=== PATIENT | female | born 1935 | race Hispanic/Latino ===

== ENCOUNTER 2017-07-09 22:50 | Emergency (ER) | payer OTHER, MEDICARE ==
[~2017-07-09 22:50] MED LIST: ACET1TAB25 PO; ASPI-1197 PO; GABA-529 PO; METOPROLOL PO; NITR0.4T SL; PANT40TA25 PO; PRAV40TA3 PO; TRAM50TA4 PO; VITA150T PO
[2017-07-09 23:29] LABS: APPEARANCE,URINE Clear (CLEAR); BILIRUBIN,URINE Negative (NEGATIVE); COLOR,URINE Yellow (YELLOW); GLUCOSE, URINE (UA) Negative (NEGATIVE); KETONES,URINE Negative (NEGATIVE); LEUKOCYTE ESTERASE ,URINE Negative (NEGATIVE); NITRATE,URINE Negative (NEGATIVE); OCCULT BLOOD,URINE Negative (NEGATIVE); PH,URINE 5.5 (5.0-8.0); PROTEIN,URINE POS 2+ (NEGATIVE); UROBILINOGEN,URINE 0.2 mg/dL (0.2-1.0)
[2017-07-09 23:36] LABS: CREATININE 0.8 mg/dL (0.5-1.5)
[2017-07-09 23:41] LABS: ALBUMIN 3.4 g/dL (3.5-5.0); BILIRUBIN,TOTAL 0.3 mg/dL (0.2-1.0); TOTAL PROTEIN, SERUM 7.8 g/dL (6.0-8.3)
[2017-07-09 23:43] LABS: BASOPHILS % (AUTO) 0.4 % (0.0-5.0); EOSINOPHILS % (AUTO) 0.7 % (0.0-8.0); HEMATOCRIT 37.8 % (36-48); MEAN CORPUSCULAR HEMOGLOBIN 32.5 pg (27.0-33.0); MEAN CORPUSCULAR HGB CONC 34.7 g/dL (32.0-36.0); MEAN CORPUSCULAR VOLUME 93.5 fL (79-99); MONOCYTES % (AUTO) 6.7 % (3.0-13.0); NEUTROPHILS % (AUTO) 60.2 % (40.0-77.0); PLATELET COUNT (AUTO) 206 K/uL (130-400); RED BLOOD CELL COUNT(AUTO) 4.04 MIL/uL (4.00-5.50); RED CELL DISTRIBUTION WIDTH 12.6 % (11.0-15.5); WHITE BLOOD COUNT (AUTO) 8.1 K/uL (4.8-10.8)
[2017-07-10 00:01] LABS: BACTERIA,URINE None Seen /HPF (None Seen); RBC,URINE None Seen /HPF (0-1); SQUAMOUS EPITHELIAL CELL,UR Few /LPF (0-2); WBC,URINE None Seen /HPF (0-1)
[2017-07-10] MEDS ORDERED: SODIUM CHLORIDE 0.9% 500ML 500 ML IV ONE (00:27)
[2017-07-10] MEDS ORDERED: ONDANSETRON HCL MDV 20ML 2 MG/ML VIAL ONE (00:27)
[2017-07-10] MEDS ORDERED: MORPHINE SULFATE 2 MG/ML 1ML SYG ONE (00:27)
[2017-07-10] MEDS ORDERED: MECLIZINE HCL 25 MG TABLET ONE (00:27)
== END 2017-07-10 03:52 | disposition home or self-care (01) ==
LOC: EDH 22:50
DX: M54.12 Radiculopathy, cervical region (principal); H81.10 Benign paroxysmal vertigo, unspecified ear; M46.82 Other specified inflammatory spondylopathies, cervical region
CPT/HCPCS: 36415; 70544; 70547; 70551; 80053; 81001; 85025; 93005; 96374; 96375; 99285; J7040

== ENCOUNTER 2017-10-28 17:50 | Observation (INO) | payer OTHER, MEDICARE ==
[~2017-10-28] VITALS: Ht 152.4 cm; Wt 60.5 kg
[2017-10-28] MEDS ORDERED: ASPIRIN 325 MG TABLET ONE (18:04)
[2017-10-28 18:13] LABS: BASOPHILS % (AUTO) 0.3 % (0.0-5.0); EOSINOPHILS % (AUTO) 0.5 % (0.0-8.0); HEMATOCRIT 39.5 % (36-48); LYMPHOCYTES % (AUTO) 34.3 % (21.0-51.0); MEAN CORPUSCULAR HEMOGLOBIN 32.1 pg (27.0-33.0); MEAN CORPUSCULAR HGB CONC 33.8 g/dL (32.0-36.0); MEAN CORPUSCULAR VOLUME 94.7 fL (79-99); MONOCYTES % (AUTO) 6.2 % (3.0-13.0); NEUTROPHILS % (AUTO) 58.7 % (40.0-77.0); PLATELET COUNT (AUTO) 199 K/uL (130-400); RED BLOOD CELL COUNT(AUTO) 4.17 MIL/uL (4.00-5.50); RED CELL DISTRIBUTION WIDTH 13.5 % (11.0-15.5); WHITE BLOOD COUNT (AUTO) 8.2 K/uL (4.8-10.8)
[2017-10-28 18:19] LABS: APPEARANCE,URINE Clear (CLEAR); BILIRUBIN,URINE Negative (NEGATIVE); COLOR,URINE Dark Yellow (YELLOW); GLUCOSE, URINE (UA) Negative (NEGATIVE); KETONES,URINE Negative (NEGATIVE); LEUKOCYTE ESTERASE ,URINE Negative (NEGATIVE); NITRATE,URINE Negative (NEGATIVE); OCCULT BLOOD,URINE Negative (NEGATIVE); PROTEIN,URINE POS 2+ (NEGATIVE); UROBILINOGEN,URINE 0.2 mg/dL (0.2-1.0)
[2017-10-28 18:25] LABS: CREATININE 0.8 mg/dL (0.5-1.5)
[2017-10-28 18:28] LABS: INR 0.9 (0.85-1.15); PARTIAL THROMBOPLASTIN TIME 25.9 SEC (26.3-35.5); PROTHROMBIN TIME 9.5 SEC (9.6-11.6)
[2017-10-28 18:31] LABS: RBC,URINE None Seen /HPF (0-1); WBC,URINE 0-1 /HPF (0-1)
[2017-10-28 18:32] LABS: BACTERIA,URINE Rare /HPF (None Seen)
[2017-10-28 18:38] LABS: ALBUMIN 3.5 g/dL (3.5-5.0); BILIRUBIN,TOTAL 0.2 mg/dL (0.2-1.0); CREATINE KINASE MB 1.4 ng/mL (0.5-3.6); TOTAL PROTEIN, SERUM 7.5 g/dL (6.0-8.3)
[2017-10-28 18:42] LABS: B-TYPE NATRIURETIC PEPTIDE 49 pg/mL (0-100)
[2017-10-28] MEDS ORDERED: FUROSEMIDE 10 MG/ML 2ML VIAL ONE (18:42)
[2017-10-28] MEDS ORDERED: NITROGLYCERIN 1GM/1 INCH PACKET TD ONE (18:42)
[2017-10-28] MEDS ORDERED: HYDRALAZINE HCL 20 MG/ML VIAL IV PRN (20:00)
[2017-10-28] MEDS ORDERED: ONDANSETRON HCL 4 MG/2 ML VIAL IVP PRN (20:15)
[2017-10-28] MEDS ORDERED: HYDROCODONE/ACETAMINOPHEN 5/325 MG TAB PO PRN (20:15)
[2017-10-28] MEDS ORDERED: ACETAMINOPHEN 325 MG TAB PO PRN (20:15)
[2017-10-28] MEDS ORDERED: MORPHINE SULFATE 2 MG/ML 1ML SYG IVP PRN (20:15)
[2017-10-28] MEDS ORDERED: LABETALOL HCL 5 MG/ML 20ML VIAL IV PRN (20:15)
[2017-10-28 21:00] VITALS: BP 148/72
[2017-10-28] MEDS: METOPROLOL TARTRATE 50 MG TAB PO SCH (21:10)
[2017-10-29] VITALS: BP 140/84
[2017-10-29 01:04] LABS: CREATINE KINASE MB 1.1 ng/mL (0.5-3.6); CREATINE KINASE, TOTAL 54 U/L (21-232); MYOGLOBIN 68 ng/mL (10-92); TROPONIN I < 0.04 ng/mL (0.00-0.06)
[2017-10-29 04:00] VITALS: BP 126/72
[2017-10-29 05:54] LABS: HEMATOCRIT 36.9 % (36-48); MEAN CORPUSCULAR HEMOGLOBIN 32.2 pg (27.0-33.0); MEAN CORPUSCULAR HGB CONC 34.1 g/dL (32.0-36.0); MEAN CORPUSCULAR VOLUME 94.3 fL (79-99); PLATELET COUNT (AUTO) 183 K/uL (130-400); RED BLOOD CELL COUNT(AUTO) 3.91 MIL/uL (4.00-5.50); RED CELL DISTRIBUTION WIDTH 13.7 % (11.0-15.5)
[2017-10-29 06:01] LABS: POTASSIUM 3.8 mmol/L (3.5-5.1)
[2017-10-29 06:12] LABS: CREATINE KINASE MB 0.9 ng/mL (0.5-3.6); CREATINE KINASE, TOTAL 44 U/L (21-232); MYOGLOBIN 61 ng/mL (10-92); TROPONIN I < 0.04 ng/mL (0.00-0.06)
[2017-10-29 06:53] LABS: B-TYPE NATRIURETIC PEPTIDE 15 pg/mL (0-100)
[2017-10-29 08:00] VITALS: BP 130/60
[2017-10-29] MEDS: ATORVASTATIN CALCIUM 40 MG TABLET PO SCH (10:07)
[2017-10-29] MEDS: LISINOPRIL 10 MG TABLET PO SCH (10:08)
[2017-10-29] MEDS: ASPIRIN 81MG TAB.CHEW PO SCH (10:08)
[2017-10-29] MEDS: ENOXAPARIN SODIUM 40 MG/0.4 ML SYRINGE SQ SCH (10:10)
[2017-10-29] MEDS: METOPROLOL TARTRATE 50 MG TAB PO SCH ×2 (10:10→20:37)
[2017-10-29 11:00] VITALS: BP 139/69
[2017-10-29 16:00] VITALS: BP 100/66
[2017-10-29 20:00] VITALS: BP 112/60
[2017-10-30] VITALS: BP 114/60
[2017-10-30 04:00] VITALS: BP 108/64
[2017-10-30 08:00] VITALS: BP 131/64
[2017-10-30] MEDS: METOPROLOL TARTRATE 50 MG TAB PO SCH ×2 (09:00→20:04)
[2017-10-30] MEDS: ATORVASTATIN CALCIUM 40 MG TABLET PO SCH (09:00)
[2017-10-30] MEDS: LISINOPRIL 10 MG TABLET PO SCH (09:00)
[2017-10-30] MEDS: ASPIRIN 81MG TAB.CHEW PO SCH (09:00)
[2017-10-30] MEDS ORDERED: REGADENOSON 0.4 MG/5 ML PF SYG IVP SCH (11:30)
[2017-10-30] MEDS: ENOXAPARIN SODIUM 40 MG/0.4 ML SYRINGE SQ SCH (18:14)
[2017-10-30 19:03] VITALS: BP 121/64
[2017-10-30 23:31] VITALS: BP 128/73
[2017-10-31 03:21] VITALS: BP 114/66
[2017-10-31 07:00] VITALS: BP 112/71
[2017-10-31] MEDS: ATORVASTATIN CALCIUM 40 MG TABLET PO SCH (09:01)
[2017-10-31] MEDS: ASPIRIN 81MG TAB.CHEW PO SCH (09:01)
[2017-10-31] MEDS: METOPROLOL TARTRATE 50 MG TAB PO SCH (09:01)
[2017-10-31] MEDS: ENOXAPARIN SODIUM 40 MG/0.4 ML SYRINGE SQ SCH (09:02)
[2017-10-31] MEDS: LISINOPRIL 10 MG TABLET PO SCH (09:02)
== END 2017-10-31 10:40 | disposition home or self-care (01) ==
LOC: EDH 17:50 → EDHIP 18:50 → 3BH 20:38
PROVIDERS: ADMIT Internal Medicine Critical Care Medicine; ATTEND Internal Medicine Critical Care Medicine
DX: I16.1 Hypertensive emergency (principal); I10 Essential (primary) hypertension; E78.5 Hyperlipidemia, unspecified; Z82.49 Family history of ischemic heart disease and other diseases of the circulatory system; M19.90 Unspecified osteoarthritis, unspecified site
CPT/HCPCS: 36415 ×2; 71045; 78452; 80048; 80053; 81001; 82550 ×2; 82553 ×3; 83874 ×2; 83880 ×2; 84484 ×3; 85025; 85027; 85610; 85730; 93005 ×2; 93017; 93306; 96372 ×3; 96374; 99285; A9500 ×2; G0378 ×64; J1650 ×4; J1940; J2785

== ENCOUNTER → 2020-04-02 | Outpatient (CLI) | payer OTHER, MEDICARE ==
[~2020-04-02] MED LIST changes: -ACET1TAB25 PO; -GABA-529 PO; -PANT40TA25 PO; -TRAM50TA4 PO; -VITA150T PO
== END | disposition home or self-care (01) ==
LOC: SHCH 14:38
PROVIDERS: ATTEND Internal Medicine Cardiovascular Disease
DX: I87.2 Venous insufficiency (chronic) (peripheral) (principal)
CPT/HCPCS: 93970

== ENCOUNTER → 2020-04-23 | Outpatient (CLI) | payer OTHER, MEDICARE | END | disposition home or self-care (01) | LOC: SHCH 08:45 | PROVIDERS: ATTEND Internal Medicine Cardiovascular Disease | DX: Z09 Encounter for follow-up examination after completed treatment for conditions other than malignant neoplasm (principal); I87.2 Venous insufficiency (chronic) (peripheral) | CPT/HCPCS: 93971 ==

== ENCOUNTER → 2020-06-12 | Outpatient (CLI) | payer OTHER, MEDICARE | END | disposition home or self-care (01) | LOC: SHCH 10:48 | PROVIDERS: ATTEND Internal Medicine Cardiovascular Disease | DX: I82.811 Embolism and thrombosis of superficial veins of right lower extremity (principal); I87.2 Venous insufficiency (chronic) (peripheral) | CPT/HCPCS: 93970 ==

== ENCOUNTER → 2021-05-08 | Outpatient (CLI) | payer OTHER, MEDICARE | END | disposition home or self-care (01) | LOC: SHCH 14:39 | PROVIDERS: ATTEND Internal Medicine Cardiovascular Disease | DX: I87.2 Venous insufficiency (chronic) (peripheral) (principal) | CPT/HCPCS: 93970 ==

== ENCOUNTER → 2021-09-06 | Outpatient (CLI) | payer OTHER, MEDICARE | END | disposition home or self-care (01) | LOC: RAH 11:00 | PROVIDERS: ATTEND Internal Medicine Cardiovascular Disease | DX: I87.1 Compression of vein (principal); M79.81 Nontraumatic hematoma of soft tissue; Z95.828 Presence of other vascular implants and grafts | CPT/HCPCS: 76882 ==

== ENCOUNTER 2022-12-20 20:26 | Emergency (ER) | payer OTHER, MEDICARE ==
[~2022-12-20] VITALS: Ht 152.4 cm; Wt 55.8 kg
[2022-12-20 21:42] LABS: HEMATOCRIT 31.3 % (36-48); MEAN CORPUSCULAR HEMOGLOBIN 31.6 pg (27.0-33.0); MEAN CORPUSCULAR HGB CONC 33.2 g/dL (32.0-36.0); MEAN CORPUSCULAR VOLUME 95.1 fL (79-99); PLATELET COUNT (AUTO) 173 K/uL (130-400); RED BLOOD CELL COUNT(AUTO) 3.29 MIL/uL (4.00-5.50); RED CELL DISTRIBUTION WIDTH 13.1 % (11.0-15.5); WHITE BLOOD COUNT (AUTO) 7.7 K/uL (4.8-10.8)
[2022-12-20 21:52] LABS: CREATININE 1.1 mg/dL (0.5-1.5); POTASSIUM 3.8 mmol/L (3.5-5.1)
[2022-12-20] MEDS ORDERED: IBUP-2076 PO (21:52)
[2022-12-20] MEDS ORDERED: BACI30OI6 TP (21:52)
[2022-12-20 21:56] LABS: ALBUMIN 3.3 g/dL (3.5-5.0); BILIRUBIN,TOTAL 0.2 mg/dL (0.2-1.0); TOTAL PROTEIN, SERUM 6.9 g/dL (6.0-8.3)
[2022-12-20 22:09] VITALS: BP 154/62; PULSE 78; RESP 18; O2SAT 99
[2022-12-20 22:24] LABS: LYMPHOCYTES % (AUTO) 24.9 % (21.0-51.0)
[2022-12-20 22:25] LABS: BASOPHILS % (AUTO) 0.1 % (0.0-5.0); EOSINOPHILS % (AUTO) 0.7 % (0.0-8.0); IMMATURE GRANULOCYTE ABSOLUTE 0.02 K/uL (0-1)
== END 2022-12-20 22:23 | disposition home or self-care (01) ==
LOC: EDH 20:26
DX: S61.412A Laceration without foreign body of left hand, initial encounter (principal); S00.83XA Contusion of other part of head, initial encounter; E78.00 Pure hypercholesterolemia, unspecified; I10 Essential (primary) hypertension; Z79.82 Long term (current) use of aspirin; W01.10XA Fall on same level from slipping, tripping and stumbling with subsequent striking against unspecified object, initial encounter; Y93.89 Activity, other specified; Y92.89 Other specified places as the place of occurrence of the external cause; Y99.8 Other external cause status
CPT/HCPCS: 36415; 70450; 72125; 73130; 80053; 85025

== ENCOUNTER → 2023-06-16 | Outpatient (CLI) | payer OTHER, MEDICARE ==
[~2023-06-16] MED LIST changes: +BACI30OI6 TP; +IBUP-2076 PO
[2023-06-16] MEDS: REGADENOSON 0.4 MG/5 ML PF SYG IVP ONE (11:58)
== END | disposition home or self-care (01) ==
LOC: SHCH 07:52
PROVIDERS: ATTEND Internal Medicine Cardiovascular Disease
DX: I25.119 Atherosclerotic heart disease of native coronary artery with unspecified angina pectoris (principal); R07.9 Chest pain, unspecified
CPT/HCPCS: 78452; 93017; J2785; A9500 ×2; 96374

== ENCOUNTER 2025-04-21 08:37 | Observation (INO) | payer OTHER, MEDICAID ==
[2025-04-19 13:29] VITALS: BP 150/71; PULSE 80; RESP 18; TEMP 98.1
[2025-04-19 13:30] LABS: IMMATURE GRANULOCYTE ABSOLUTE 0.02 K/uL (0-1); NUCLEATED RED BLOOD CELLS 0.0 % (0.0-0.19); PLATELET COUNT (AUTO) 215 K/uL (130-400); RED BLOOD CELL COUNT(AUTO) 3.64 MIL/uL (4.00-5.50); RED CELL DISTRIBUTION WIDTH 11.9 % (11.0-15.5); WHITE BLOOD COUNT (AUTO) 6.3 K/uL (4.8-10.8)
--- NOTE | 2025-04-19 13:32 | EKG ---
[facility] Test Date: 2025-04-19 Test Time: 13:20:15 Pat Name: KALEIGH DAVE Department: [facility] Room: Gender: F Regulatory Specialist: [id number] : 1935 Requested By: ASHA DAVE Order Number: [id number] Reading MD: Miles Holt Measurements Intervals [place] Rate: 77 P: 60 NE: 150 QRS: 45 QRSD: 81 T: 42 QT: 349 QTc: 394 Interpretive Statements Sinus rhythm Compared to ECG 10/29/2017 07:40:15 No significant changes Electronically Signed On 04-20-2025 08:46:35 THEORETICAL PHYSICIST by Miles Holt Please click the below link to view image of tracing.
[2025-04-19 13:38] LABS: CREATININE 1.2 mg/dL (0.5-1.0); GLOMERULAR FILTR. RATE CALC 44.0 mL/min (>90); GLUCOSE,RANDOM 120.0 mg/dL (70-105); SODIUM SERUM 137.0 mmol/L (136-145); UREA NITROGEN, BLOOD 25.0 mg/dL (7-18)
[2025-04-19 14:07] LABS: INR 0.97 (0.85-1.15)
--- NOTE | 2025-04-19 14:55 | HMCIMG ---
EXAM: CR Chest, 1 View. CLINICAL HISTORY: PRE OP COMPARISON: None provided. FINDINGS: LUNGS: The lungs show no infiltrate or other acute finding. PLEURAL SPACES: No pleural effusion or pneumothorax. MEDIASTINUM: Cardiac size and mediastinal contours within normal limits. BONES: No acute osseous abnormality. IMPRESSION: No acute cardiopulmonary pathology is evident. /Coggon
[~2025-04-21] VITALS: Ht 147.3 cm; Wt 50.7 kg
[2025-04-21] VITALS (19 sets, daily range): BP systolic 132–175; BP diastolic 60–85; PULSE 58–82; RESP 14–18; TEMP 97.6–98.7; O2SAT 98–100
[~2025-04-21 08:37] MED LIST changes: -ASPI-1197 PO; -BACI30OI6 TP; +CHOL200013 PO; +CYAN250010 PO; +GABA-529 PO; -IBUP-2076 PO; +LISI10TA24 PO; +LORA10TA7 PO; -METOPROLOL PO; -NITR0.4T SL; -PRAV40TA3 PO; +PRAV40TA62 PO
[2025-04-21] MEDS ORDERED: LIDOCAINE HCL 400MG/20ML VIAL ONE (11:01)
[2025-04-21] MEDS ORDERED: HEParin-NS 1,000 UNIT/500 ML 1,000 ML IV ONE (11:01)
[2025-04-21] MEDS ORDERED: IOHEXOL 350 MG/ML 100ML INFUS..BTL IV ONE (11:01)
[2025-04-21] MEDS ORDERED: NITROGLYCERIN 50MG VIAL ONE (11:01)
[2025-04-21] MEDS ORDERED: HEParin-NS 1,000 UNIT/500 ML 500 ML IV ONE (11:19)
[2025-04-21] MEDS ORDERED: MIDAZOLAM HCL 1 MG/ML 2ML VIAL ONE (11:31)
[2025-04-21] MEDS ORDERED: BIVALIRUDIN 250 MG/VIAL IV ONE (11:56)
[2025-04-21] MEDS ORDERED: ASPIRIN 81MG CHEW TAB ONE (12:18)
--- NOTE | 2025-04-21 12:47 | PRN ---
PROCEDURES: 1. Right common femoral arterial sheath placement. 2. Selective coronary angiogram. 3. Left heart catheterization. 4. Left ventriculogram. 5. Conscious sedation 6. Primary stent placement to proximal right coronary artery with placement of a 4 mm x 15 mm Xience stent deployed to 4.01 mm INDICATION: Unstable angina DESCRIPTION OF PROCEDURE: The patient was brought to the catheterization suite and prepped and draped in sterile fashion. IV was started, and not already in place and both groins were exposed for arterial access. 1% lidocaine was used for local anesthesia and then a micropuncture kit was used to gain access once free-flowing blood was seen, modified Seldinger technique was utilized to place a 6 [place] sheath into the right common femoral artery. Next, preformed JL4 and JR 4 catheters were used to selectively engage the [place] coronary vessels and multiple hand contrast injections were performed in different views to define the coronary anatomy. Next a the end of the case, a 6 [place] angled pigtail was used to cross the aortic valve. Pressure measurements were obtained and then a left ventriculogram was performed in 30 JOSEPH position. Next, pullback method was performed. FINDINGS: The left main artery bifurcates into the LAD and left circumflex and has ostial stenosis proximally 20% with some catheter spasm noted. This bifurcates into the LAD and left circumflex and is free of any significant stenosis The left anterior descending artery in its mid segment after a high diagonal branch 1. Has a stenosis of 20-30%. Diagonal branch 1. Is a large vessel and is free of any significant disease. Remaining diagonal branch system is free of any significant stenosis. The left circumflex artery is a nondominant small system giving rise to small obtuse marginal branches with no stenosis present. The right coronary artery in its proximal segment has an 85% concentric stenosis with significant dampening noted upon catheter engagement. The RPDA and RPL are free of any significant stenosis. LVEDP is noted to be normal at 12 mm of mercury There was no significant evidence of aortic stenosis or mitral regurgitation Estimated ejection fraction is at 60% with normal resting wall motion in views obtained INTERVENTIONAL REPORT: After diagnostic angiography was performed it was felt intervention should be done to right coronary artery. An AR 3-1/2 guide catheter with side holes was then used to selectively engage the RCA and then a run-through wire 0.014 in was then placed in the distal ongoing RPL. Next a 4 mm x 15 mm Xience stent was then placed into the proximal RCA and deployed to 4.01 mm. At end of case a Perclose device was used for closure of arteriotomy site and no complications occurred. RECOMMENDATIONS: Patient will be placed in the hospital on observation status overnight and will receive IV fluids. Patient will be maintained on dual antiplatelet therapy and a long-acting nitrate Plan for discharge in a.m.. Check laboratory data involving CBC and basic metabolic profile in the morning. ASHA DAVE MD Apr 21, 2025 12:47
[2025-04-21] MEDS ORDERED: NITROGLYCERIN 0.4 MG SL TAB SL PRN (13:00)
[2025-04-21] MEDS ORDERED: DEXTROSE 50%-WATER 50 ML DISP.SYRIN IV PRN (13:00)
[2025-04-21] MEDS ORDERED: GLUCAGON 1MG KIT 1 MG ML IM PRN (13:00)
--- NOTE | 2025-04-21 13:29 | NUR ---
REPORT GIVEN TO CALOS GALLO 2ND FLOOR
[2025-04-21] MEDS: 0.9%NACL 1000ML 1,000 ML IV SCH (13:55)
--- NOTE | 2025-04-21 13:55 | NUR ---
RECEIVED PATIENT FROM [facility], S/P [facility] WITH STENT TO RCA BY DR. ASHA DAVE. CURRENTLY DENIES CHEST PAIN OR SHORTNESS OF BREATH. NS AT 100 CC/HR. RIGHT GROIN SOFT WITH DRESSING DRY AND INTACT. TELEMETRY READING SB HR 58. BEDREST UNTIL 3PM. WILL CONTINUE WITH PLAN OF CARE.
--- NOTE | 2025-04-21 15:05 | NUR ---
RIGHT GROIN SOFT. BEDREST COMPLETED. ASSISTED OUT OF BED TO BATHROOM, TOLERATED ACTIVITY WELL.
--- NOTE | 2025-04-21 15:19 | HP ---
[facility] H[facility]ORY [facility] PHYSICAL Date of Service: Apr 21, 2025 Time of Service: 15:10 HISTORY OF PRESENT ILLNESS: [ ] admission date: PCP: Monique Lee DO CC: Left heart cath: s/p stent placement to proximal right coronary artery with placement of a 4 mm x 15 mm Xience stent deployed to 4.01 mm It Analyst: DR Joshua Lynn. This is a 89-year-old female that underwent left heart catheterization with primary stent placement to proximal right coronary artery with placement of a 4 mm x 15 mm Xience stent deployed to 4.01 mm per pipelaying fitter: DR Shane Lewis. Patient was placed in the hospital for observation status overnight. she will receive IV fluids and maintained on dual antiplatelet therapy and long-acting nitrates. REVIEW OF SYSTEMS CONSTITUTIONAL: Denies fevers, chills, or night sweats. No unintentional weight loss reported. NEUROLOGICAL: Denies headache, amaurosis fugax, motor weakness, sensory deficit, vertigo/spinning sensation, gait abnormalities, or tremors. ENT: No hearing loss, otalgia, otorrhea, rhinitis, rhinorrhea, hoarseness, or sore throat. CARDIOVASCULAR: Denies any exertional angina, dyspnea on exertion, orthopnea, paroxysmal nocturnal dyspnea, palpitations, life-threatening arrhythmias, claudication. PULMONARY: Denies any shortness of breath, cough, phlegm/sputum, hemoptysis, pleuritic chest pain. SLEEP: Denies morning headaches, daytime somnolence or napping. Denies difficulty falling asleep, staying asleep, waking from sleep. Denies knowledge of snoring. GASTROINTESTINAL: Denies any type of dysphagia to either liquids or solids. Denies nausea, vomiting, pyrosis, early satiety, abdominal pain, diarrhea, constipation, or changes in stool consistency or caliber. Denies coffee-ground emesis, hematemesis, hematochezia, or melanotic stools. GENITOURINARY: Denies frequency, urgency, nocturia, hematuria or incontinence (Storage/Irritative symptoms.) Low urinary stream, straining to void, urinary intermittency or hesitancy, splitting of the voiding stream, terminal dribbling. ENDOCRINOLOGIC: Denies polyuria, polydipsia, polyphagia or heat/cold intolerances. HEMATOLOGIC: Denies thrombophilia/previous clots, or coagulopathy/bleeding disorders. ONCOLOGIC: Denies personal history of malignancy. DERMATOLOGIC: Denies rashes or pruritus. PSYCHIATRIC: Denies any suicidal or homicidal ideation. Denies hallucinations. PAST MEDICAL HISTORY: [ ] Hypertension, hyperlipidemia PAST SURGICAL HISTORY: [ ] PAST SOCIAL HISTORY: [ ]Denies tobacco, alcohol, or drugs. FAMILY HISTORY: [ ] noncontributory Coded Allergies: No Known Drug Allergies (Unverified Allergy, Unknown, 12/12/15) PHYSICAL EXAM GENERAL APPEARANCE: The patient is awake, alert, and oriented, in no acute cardiopulmonary distress. NEUROLOGICAL: Cranial nerves II-XII grossly intact. Motor is 5/5 in bilateral upper and lower extremities proximal to distal. No sensory deficits. HEENT: Face is symmetric. Pupils are equal and reactive. Extraocular movements are intact. NECK: Supple. No JVD. No thyromegaly. No submental, submandibular, pre- /postauricular, occipital or supraclavicular lymphadenopathy. CHEST: Normal chest expansion. No Telemetry. LUNGS: Absence of any rales, rhonchi or any wheezing. CARDIOVASCULAR: Regular. S1 and S2 normal. No appreciable rubs, murmurs or gallops. ABDOMEN: Soft, nontender, and nondistended. There is no rebound, voluntary guarding, or rigidity. : Deferred. No Martell. EXTREMITIES: Non-edematous and not cyanotic. No clubbing. Good capillary refill. SKIN: No skin breakdown. Vital Sign (Last 24 Hours) 04/21/25 14:40 Temp 97.9 Pulse 64 Resp 16 B/P (MAP) 148/85 Pulse Ox 98 O2 Delivery Room Air FiO2 21 LABS: Current Medications Medications (Trade) Dose Ordered Sig/Isidra Route PRN Reason Start Time Stop Time Status Last Admin Dose Admin Aspirin (Aspirin 81mg Chew Tab) 81 mg DAILY PO 04/22/25 09:00 05/22/25 08:59 Clopidogrel Bisulfate (plaVIX 75MG) 75 mg DAILY PO 04/22/25 09:00 05/22/25 08:59 Dextrose (D50w) 50 ml AD PRN IV HYPOGLYCEMIA PROTOCOL 04/21/25 13:00 05/21/25 12:59 Glucagon (Glucagon 1mg Kit) 1 mg AD PRN IM HYPOGLYCEMIA PROTOCOL 04/21/25 13:00 05/21/25 12:59 Nitroglycerin (Nitrostat) 0.4 mg AD PRN SL CHEST PAIN 04/21/25 13:00 05/21/25 12:59 Sodium Chloride 1,000 ml @ 100 mls/hr Q10H IV 04/21/25 13:00 04/21/25 18:59 DIAGNOSTICS / RADIOLOGY: [ ] ASSESSMENT: Unstable angina status post heart catheterization Primary stent placement to proximal right coronary artery with placement of a 4 mm x 15 mm Xience stent deployed to 4.01 mm CAD Hypertension, hyperlipidemia PLAN: [ ] Admit: PCCU ( observation) condition: guarded Status: full code IVF:NS at 100 ml/hr Consultants pipelaying fitter Antibiotics:None s/p Left heart cath x1 stent: plavix 75 mg daily, asa 81 mg po daily Labs cbc, cmp, mag+ in am Replace electrolytes as needed as per protocol to keep potassium above 4.0 magnesium 2.0. Home medications pending to be reviewed by RN nurse. PRN: MEDICATIONS Tylenol 650 mg po every 4 hrs for fever Zofran 4 mg IV every 6 hrs for n/v Hydralazine 5 mg IV every 4 hrs systolic pressure > 160 bowel regiment: lactulose 20 gm PO BID PRN constipation Pain management: Supportive measures: DVT ppx, GI ppx all questions answered time spent: > 35 min Supervising MD: Dr. Tucker Aponte c/diony This document was generated in part using voice recognition software, occasional wrong word or sound alike substitutions may have occurred due to the inherent limitations of voice recognition software. Read the chart carefully and recognize using context, where the substitutions have occurred. Although every effort was made to edit the content, director compliance and typing errors may occur ADVANCED CARE PLANNING 1. Which of the following were discussed? Hospice Care - Yes / No Therapeutic options - Yes / No Advance Directives - Yes / No Other discussions - 2. Discussed with who? 3. Voluntary nature of this service was explained to the patient? Yes / No 4. Amount of time spent - 5. Reviewed by Physician? (if this service was performed by NPP) Yes / No ATTESTATION BY PHYSICIAN I have seen and examined the patient. I reviewed the documentation, medical decision making, and treatment plan as noted by the mid-level provider above. I agree with the findings and plan of care. BIB CALIX MD, [facility] Apr 21, 2025 15:19
[2025-04-21] MEDS ORDERED: PoTASSium chloRIDE 20MEQ ER 20 MEQ ERTAB PO PRN (15:30)
[2025-04-21] MEDS ORDERED: SENNOSIDES 8.6 MG TABLET PO PRN (15:30)
[2025-04-21] MEDS ORDERED: PoTASSium chl 10% ELIXIR 20MEQ 20 MEQ/15 ML UDCUP PO PRN (15:30)
[2025-04-22 03:15] VITALS: BP 131/51; PULSE 89; RESP 18; TEMP 98.8
[2025-04-22 04:58] LABS: NUCLEATED RED BLOOD CELLS 0.0 % (0.0-0.19); PLATELET COUNT (AUTO) 170.0 K/uL (130-400); RED BLOOD CELL COUNT(AUTO) 3.38 MIL/uL (4.00-5.50); RED CELL DISTRIBUTION WIDTH 12.0 % (11.0-15.5); WHITE BLOOD COUNT (AUTO) 5.4 K/uL (4.8-10.8)
[2025-04-22 05:14] LABS: CREATININE 1.1 mg/dL (0.5-1.0); GLOMERULAR FILTR. RATE CALC 49.0 mL/min (>90); GLUCOSE,RANDOM 109.0 mg/dL (70-105); SODIUM SERUM 137.0 mmol/L (136-145); UREA NITROGEN, BLOOD 24.0 mg/dL (7-18)
[2025-04-22] MEDS: MAGNESIUM 2GM PREMIX 50ML 50 ML IV PRN (05:46)
[2025-04-22 07:17] VITALS: BP 138/66; PULSE 78; RESP 18; TEMP 98.1
[2025-04-22 08:00] VITALS: O2SAT 97
--- NOTE | 2025-04-22 09:02 | PN ---
[facility] CARDIOLOGY PROGRESS NOTE Cardiology progress note dictated for Wanda Biggs MD Date Patient Seen: Apr 22, 2025 Time of Visit: 08:57 Interval History: Patient is status post coronary angiogram on 04/21/2025. Right groin dressing in place is soft to touch no hematoma noted. Physical Examination: GENERAL: No acute distress. HEAD: Normal with no signs of head trauma. EYES: conjunctiva and sclera normal. NECK: Supple without JVD. LUNGS: Clear breath sounds bilaterally. No wheezes, or rhonchi. HEART: Normal rate and rhythm. Normal S1 and S2 without murmurs, gallop or rub. VASC: Peripheral pulses +2 bilaterally. EXT: No clubbing, cyanosis or edema. Right groin dressing in place is soft to touch no hematoma noted. NEURO: Awake, alert, and oriented x3. No focal neurological deficits noted. Laboratory: Hematology Labs: Test 04/22/25 07:33 04/22/25 04:46 Range/Units Reticulocyte Count (auto) 1.50844 0.42-2.23 % Immature Reticulocyte Fraction 8.90 H 0.18-0.48 % White Blood Count 5.4 4.8-10.8 K/uL Red Blood Count 3.38 L 4.00-5.50 MIL/uL Hemoglobin 10.5 L 12.0-16.0 g/dL Hematocrit 31.1 L 36-48 % Mean Corpuscular Volume 92.0 79-99 fL Mean Corpuscular Hemoglobin 31.1 27.0-33.0 pg Mean Corpuscular Hemoglobin Concent 33.8 32.0-36.0 g/dL Red Cell Distribution Width 12.0 11.0-15.5 % Platelet Count 170 130-400 K/uL Mean Platelet Volume 9.4 7.5-10.5 fL Nucleated Red Blood Cells 0.0 0.0-0.19 % Chemistry Labs: Test 04/22/25 07:33 04/22/25 05:48 04/22/25 04:46 Range/Units Whole Blood Glucose 114 H 70-110 MG/DL Sodium Level 137 136-145 mmol/L Potassium Level 4.3 3.5-5.1 mmol/L Chloride Level 108 101-111 mmol/L Carbon Dioxide Level 21 21-32 mmol/L Blood Urea Nitrogen 24 H 7-18 mg/dL Creatinine 1.1 H 0.5-1.0 mg/dL Glomerular Filtration Rate Calc 49 >90 mL/min Random Glucose 109 H 70-105 mg/dL Total Calcium 8.6 8.5-10.1 mg/dL Magnesium Level 1.70 L 1.80-2.40 mg/dL Diagnostics / Radiology: Impression and Plan: [facility]/coronary angiogram on 04/21/2025 revealed 85% stenosis to the proximal RCA status post a 4 mm x 15 mm Xience stent deployed to 4.01 mm The patient is to be discharge on Aspirin 81 mg daily, Plavix 75 mg daily, and long-acting nitrate Imdur ER 30 mg daily Follow-up with Dr. Joshua Lynn in 7-10 days post discharge [facility] Apr 22, 2025 09:02
[2025-04-22 09:24] LABS: % IRON SATURATION 18.8 % (22-44); IRON, SERUM 43.0 mcg/dL (50-170)
[2025-04-22] MEDS ORDERED: MAGNESIUM 2GM PREMIX 50ML 50 ML IV SCH (09:30)
[2025-04-22] MEDS: ISOSORBIDE MONO 30MG SR TAB PO SCH (10:26)
[2025-04-22] MEDS: ASPIRIN 81MG CHEW TAB PO SCH (10:26)
[2025-04-22] MEDS ORDERED: ASPI-1005 PO (10:37)
[2025-04-22] MEDS ORDERED: Isosorbide Mono 30MG Sr Tab PO (10:37)
[2025-04-22] MEDS ORDERED: CLOP-31 PO (10:37)
--- NOTE | 2025-04-22 10:45 | DS ---
Discharge Summary Hospital Course Summary: PCP: Monique Lee DO CC: Left heart cath: s/p stent placement to proximal right coronary artery with placement of a 4 mm x 15 mm Xience stent deployed to 4.01 mm Paste Up Copy Camera Operator: DR Joshua Lynn. This is a 89-year-old female that underwent left heart catheterization with primary stent placement to proximal right coronary artery with placement of a 4 mm x 15 mm Xience stent deployed to 4.01 mm per boiler maker: DR Shane Lewis. Patient was placed in the hospital for observation status overnight. she will receive IV fluids and maintained on dual antiplatelet therapy and long-acting nitrates. 04/22/25 patient was seen earlier patient reports no chest pain events overnight no arrhythmias were reported. Postop day one right groin site noted no hematoma pulses present denies numbness or tingling to right lower extremity. She is hemodynamically stable for discharge. Repeat potassium 2.0. Hemoglobin 10.1. Patient will be discharged on iron supplements. Assistant Teacher(s): PROCEDURE NOTE Name: KALEIGH LYNN Acct: [id number] MR: [id number] : 1935 Admit Date: JOSHUA LYNN MD [place] [id number] [id number] PROCEDURES: 1. Right common femoral arterial sheath placement. 2. Selective coronary angiogram. 3. Left heart catheterization. 4. Left ventriculogram. 5. Conscious sedation 6. Primary stent placement to proximal right coronary artery with placement of a 4 mm x 15 mm Xience stent deployed to 4.01 mm INDICATION: Unstable angina DESCRIPTION OF PROCEDURE: The patient was brought to the catheterization suite and prepped and draped in sterile fashion. IV was started, and not already in place and both groins were exposed for arterial access. 1% lidocaine was used for local anesthesia and then a micropuncture kit was used to gain access once free-flowing blood was seen, modified Seldinger technique was utilized to place a 6 [place]ive[place] sheath into the right common femoral artery. Next, preformed JL4 and JR 4 catheters were used to selectively engage the [place] coronary vessels and multiple hand contrast injections were performed in different views to define the coronary anatomy. Next a the end of the case, a 6 [place] angled pigtail was used to cross the aortic valve. Pressure measurements were obtained and then a left ventriculogram was performed in 30 JOSEPH position. Next, pullback method was performed. FINDINGS: The left main artery bifurcates into the LAD and left circumflex and has ostial stenosis proximally 20% with some catheter spasm noted. This bifurcates into the LAD and left circumflex and is free of any significant stenosis The left anterior descending artery in its mid segment after a high diagonal branch 1. Has a stenosis of 20-30%. Diagonal branch 1. Is a large vessel and is free of any significant disease. Remaining diagonal branch system is free of any significant stenosis. The left circumflex artery is a nondominant small system giving rise to small obtuse marginal branches with no stenosis present. The right coronary artery in its proximal segment has an 85% concentric stenosis with significant dampening noted upon catheter engagement. The RPDA and RPL are free of any significant stenosis. LVEDP is noted to be normal at 12 mm of mercury There was no significant evidence of aortic stenosis or mitral regurgitation Estimated ejection fraction is at 60% with normal resting wall motion in views obtained INTERVENTIONAL REPORT: After diagnostic angiography was performed it was felt intervention should be done to right coronary artery. An AR 3-1/2 guide catheter with side holes was then used to selectively engage the RCA and then a run-through wire 0.014 in was then placed in the distal ongoing RPL. Next a 4 mm x 15 mm Xience stent was then placed into the proximal RCA and deployed to 4.01 mm. At end of case a Perclose device was used for closure of arteriotomy site and no complications occurred. RECOMMENDATIONS: Patient will be placed in the hospital on observation status overnight and will receive IV fluids. Patient will be maintained on dual antiplatelet therapy and a long-acting nitrate Plan for discharge in a.m.. Check laboratory data involving CBC and basic metabolic profile in the morning. JOSHUA LYNN MD Assessment/Plan: discharged dx's Unstable angina status post heart catheterization Primary stent placement to proximal right coronary artery with placement of a 4 mm x 15 mm Xience stent deployed to 4.01 mm CAD Hypertension, hyperlipidemia anemia iron deficiency POA electrolytes derangement: magnesemia PLAN: [ ] ADMISSION DATE: 04/21/25 DISCHARGE DATE: 04/22/25 DISPOSITION: home CONDITION: stable COLLISION ESTIMATOR(S): boiler maker: Dr Lynn FOLLOW UP APPOINTMENT(S): Dr Lynn [place] [facility]: 7-10 days. PROCEDURES: left heart cath: x1 stent IMAGING (S) report attached to summary : none MICROBIOLOGY: report attached to summary; none ACTIVITY: ab vani HOME MEDICATIONS home medications remain the same CHANGES ON HOME MEDICATIONS none NEW MEDICATIONS aspirin 81 mg po daily, Plavix 75 mg po daily, and Isosorbide 30 mg po daily , iron supplements: ferrous sulfate: 325 mg po bid TEACHING: fall precaution, side effects and adverse reaction Emergency instructions: The patient was instructed to present to the nearest Emergency Department or call 911 should their symptoms return or worsen. Home Medications: Active Scripts Clopidogrel Bisulfate (Plavix) 75 Mg Tablet, 75 MG PO DAILY for 30 Days, #30 TAB 0 Refills Prov:BEBO FUENTESP 04/22/25 [Isosorbide [place] 30MG Sr Tab] 30 MG TAB.ER.24H No Conflict Check, 30 MG PO DAILY for 30 Days, #30 MG 0 Refills Prov:BEBO FUENTESP 04/22/25 Aspirin (ASPIRIN 81MG CHEW TAB) 81 Mg Tab.chew, 81 MG PO DAILY for 30 Days, #30 TAB.CHEW 0 Refills Prov:BEBO FUENTESP 04/22/25 Reported Medications Loratadine (Loratadine) 10 Mg Tablet, 10 MG PO HS, TAB 04/19/25 Cyanocobalamin (Vitamin B-12) (Vitamin B12) 2,500 Mcg Tablet, 2500 MCG PO DAILY, TAB 04/19/25 Cholecalciferol (Vitamin D3) (Vitamin D3) 50 Mcg (2000 Unit) Capsule, 50 MCG PO DAILY, CAP 04/19/25 Lisinopril (Lisinopril) 10 Mg Tablet, 10 MG PO HS, TAB 04/19/25 Gabapentin (Gabapentin) 100 Mg Capsule, 100 MG PO BID PRN for PAIN, CAP 04/19/25 Pravastatin Sodium (Pravastatin Sodium) 40 Mg Tablet, 40 MG PO HS, TAB 11/29/15 Discontinued Reported Medications Nitroglycerin (Nitrostat) 0.4 Mg Tab.subl, 0.4 MG SL AD PRN for CHEST PAIN, TAB.SL 02/21/16 Aspirin (Aspirin) 81 Mg Tab.chew, 81 MG PO DAILY, TAB.CHEW 02/21/16 [Metoprolol] No Conflict Check, 50 MG PO DAILY 11/29/15 Discontinued Scripts Ibuprofen (Ibuprofen) 400 Mg Tablet, 400 MG PO TIDP for p, #30 TAB Prov:TEJA LEVY MD 12/20/22 Bacitracin (Bacitracin) 28.4 Gm Oint...g., 28.4 GM TP TID, #30 BRANDON Prov:TEJA LEVY MD 12/20/22 New Medications: Aspirin (Aspirin 81MG Chew Tab) 81 Mg Tab.chew 81 MG PO DAILY for 30 Days, #30 TAB.CHEW 0 Refills Clopidogrel Bisulfate (Plavix) 75 Mg Tablet 75 MG PO DAILY for 30 Days, #30 TAB 0 Refills [Isosorbide [place] 30MG Sr Tab] () 30 MG TAB.ER.24H 30 MG PO DAILY for 30 Days, #30 MG 0 Refills Continued Medications: Cholecalciferol (Vitamin D3) (Vitamin D3) 50 Mcg (2000 Unit) Capsule 50 MCG PO DAILY, CAP Cyanocobalamin (Vitamin B-12) (Vitamin B12) 2,500 Mcg Tablet 2500 MCG PO DAILY, TAB Gabapentin (Gabapentin) 100 Mg Capsule 100 MG PO BID PRN for PAIN, CAP Lisinopril (Lisinopril) 10 Mg Tablet 10 MG PO HS, TAB Loratadine (Loratadine) 10 Mg Tablet 10 MG PO HS, TAB Pravastatin Sodium (Pravastatin Sodium) 40 Mg Tablet 40 MG PO HS, TAB Time spent arranging discharge: 31-60 minutes ATTESTATION BY PHYSICIAN I have seen and examined the patient. I reviewed the documentation, medical decision making, and treatment plan as noted by the mid-level provider above. I agree with the findings and plan of care. BIB CALIX MD, [facility] Apr 22, 2025 10:45
[2025-04-22 12:08] LABS: NUCLEATED RED BLOOD CELLS 0.0 % (0.0-0.19); PLATELET COUNT (AUTO) 298.0 K/uL (130-400); RED BLOOD CELL COUNT(AUTO) 3.25 MIL/uL (4.00-5.50); RED CELL DISTRIBUTION WIDTH 12.2 % (11.0-15.5); WHITE BLOOD COUNT (AUTO) 3.8 K/uL (4.8-10.8)
[2025-04-22 12:37] VITALS: BP 136/72; PULSE 111; RESP 18; TEMP 98
[2025-04-22] MEDS ORDERED: FERR325T22 PO (12:53)
--- NOTE | 2025-04-22 13:05 | NUR ---
GIVEN DISMISSAL INSTRUCTIONS AND WRITTEN SCRIPTS TO PATIENT AND HER DAUGHTER, JAVED. VERBALIZED UNDERSTANDING. REMOVED TELE PACK, REMOVED IV FROM LEFT HAND, IV SITE WITHOUT REDNESS NOTED.
--- NOTE | 2025-04-22 13:19 | NUR ---
TAKEN TO PRIVATE CAR ALONG WITH PERSONAL BELONGINGS VIA WHEELCHAIR BY PCP MAYELA.
== END 2025-04-22 13:34 | disposition home or self-care (01) ==
LOC: DAH 08:37 → DAHIP 12:33 → 2DH 13:55
PROVIDERS: ADMIT Internal Medicine; ATTEND Internal Medicine
DX: I25.110 Atherosclerotic heart disease of native coronary artery with unstable angina pectoris (principal); I10 Essential (primary) hypertension; E78.5 Hyperlipidemia, unspecified; D50.9 Iron deficiency anemia, unspecified; R79.1 Abnormal coagulation profile; Z79.82 Long term (current) use of aspirin; Z79.899 Other long term (current) drug therapy
CPT/HCPCS: 80048 ×2; 83880; 85025; 85610; 85730; 36415 ×2; 71045; 93005; 93458; 99156; 99157 ×4; 96365; 96366; 96375; 83735 ×2; 82728 ×2; 85027 ×2; 82948; 82607; C1887 ×2; C1894 ×2; C1760; C1769; Q9965; C1874; G0378 ×25; J3010; J3490 ×2; J2250; J1644 ×2; J0583; Q9967; A4215; A4554; A4335; A4223 ×2; A4221; A4663; A4216; A4606; C9600; J3475; J2470